=== PATIENT | female | born 1995 | race Hispanic/Latino ===

== ENCOUNTER 2017-07-31 22:52 | Inpatient (IN) | payer OTHER ==
[2017-07-31 23:19] VITALS: BMI 27.7
[2017-07-31] MEDS ORDERED: Ibuprofen 800 MG TAB PO PRN (23:28)
[2017-07-31] MEDS ORDERED: HYDROcodone/Acetaminophen 5/325 mg Tablet PO PRN ×2 (23:28)
[2017-07-31] MEDS ORDERED: Lidocaine 1% (PF) 30 ML VIAL SC PRN ×2 (23:28→23:33)
[2017-07-31] MEDS ORDERED: Promethazine HCl 25 MG/ML VIAL IM PRN (23:28)
[2017-07-31] MEDS ORDERED: Ondansetron HCl/PF 4 MG/2 ML Vial IVP PRN (23:28)
[2017-07-31] MEDS ORDERED: LR / Pitocin 40 units/1000 ml 1,000 ML IV PRN ×2 (23:28→23:33)
[2017-07-31] MEDS ORDERED: Penicillin G Potassium 5 MILL.UNITS in Sodium Chloride 0.9% 100 ML IVPB SCH (23:45)
[2017-07-31 23:51] LABS: Hematocrit 37.8 % (36.0-47.0); Mean Platelet Volume 8.6 fL (7.4-10.4); Red Blood Cell (RBC) Count 4.22 mill/uL (4.20-5.40); White Blood Cell (WBC) Count 10.4 thou/uL (4.8-10.8)
[2017-07-31] MEDS: Lactated Ringer's 1,000 ML IV SCH (23:55)
[2017-08-01] MEDS ORDERED: Bupivacaine 0.25% 10 ML VIAL ONE (00:01)
[2017-08-01] MEDS ORDERED: Fentanyl 4 mcg/Marc 0.1% Cadd 100 ML ONE (00:25)
[2017-08-01] MEDS ORDERED: diphenhydrAMINE HCl 50 MG/ML 1 ML VIAL IVP PRN (01:03)
[2017-08-01] MEDS ORDERED: Acetaminophen 325 MG TAB PO PRN (01:03)
[2017-08-01] MEDS ORDERED: Ondansetron HCl/PF 4 MG/2 ML Vial IVP PRN (01:03)
[2017-08-01] MEDS ORDERED: Promethazine HCl 25 MG/ML VIAL IM PRN (01:03)
[2017-08-01] MEDS ORDERED: Lactated Ringer's 500 ML IV PRN (01:03)
[2017-08-01] MEDS ORDERED: Naloxone HCl 0.4 mg/ml Vial IVP PRN ×2 (01:03)
[2017-08-01] MEDS ORDERED: Eucerin (Mineral Oil/Petrolatum,White) 30 gm Jar TOP PRN (01:03)
[2017-08-01] MEDS ORDERED: ePHEDrine/0.9% NaCl/PF SYRINGE 50 mg/10 ml SLOW IVP PRN (01:03)
[2017-08-01] MEDS ORDERED: Lanolin Ointment 7 GM TUBE TOP PRN (01:07)
[2017-08-01] MEDS ORDERED: Bisacodyl 10 MG SUPP PR PRN (01:07)
[2017-08-01] MEDS ORDERED: Measles/Mumps/Rubella 10 MCG/0.5 ML VIAL SC ONE (01:07)
[2017-08-01] MEDS ORDERED: Acetaminophen/Codeine 30-300mg Tablet PO PRN (01:07)
[2017-08-01] MEDS ORDERED: Benzocaine/Menthol 20-0.5% 60 ML CAN TOP PRN (01:07)
[2017-08-01] MEDS ORDERED: Adacel (T-DAP) 0.5 ML VIAL IM ONE (01:07)
[2017-08-01] MEDS ORDERED: Milk Of Magnesia 30 ML UDCUP PO PRN (01:07)
[2017-08-01] MEDS ORDERED: Varicella virus, LIVE 0.5 ML VIAL SC ONE (01:07)
[2017-08-01] MEDS ORDERED: HYDROcodone/Acetaminophen 5/325 mg Tablet PO PRN (01:07)
[2017-08-01 01:13] LABS: CO2 Tension (PaCO2) 65.6 mmHg (44.0-56.0)
[2017-08-01] MEDS ORDERED: LR / Pitocin 40 units/1000 ml 1,000 ML IV SCH (01:15)
[2017-08-01] MEDS ORDERED: Fentanyl 4mcg/Marcaine 0.1% Cassette 100 ML EPIDURAL SCH (01:15)
[2017-08-01] MEDS ORDERED: Communication Order-Pharmacy FS SCH (01:15)
[2017-08-01] MEDS: Ibuprofen 800 MG TAB PO SCH ×3 (04:04→21:03)
[2017-08-01] MEDS: Penicillin G 2.5 MILL.units 2.5 MILL.UNITS in Premix Bag 1 BAG IVPB SCH ×5 (05:24→21:09)
--- NOTE | 2017-08-01 06:23 | HP ---
LOCATION: Labor and Delivery. TIME OF EVALUATION: 2314 REASON FOR EVALUATION: Contractions at 39 weeks and 3 days. This is a patient of Dr. Oneill who is unavailable with Dr. Galindo covering. HISTORY OF PRESENT ILLNESS: In brief, this is a patient of Dr. Oneill who is a 22-year-old G3, P1 a t 39 weeks and 3 days, GBS positive, with irregular contractions. She denies trauma, vaginal bleedi ng or other complications. She denies any issues. This is a courtesy H\T\P for Dr. Mateo carr ho was covering for Dr. Oneill. PAST MEDICAL HISTORY: Otherwise, negative. PAST SURGICAL HISTORY: Significant only for Lasik surgery in 2015. OBSTETRIC HISTORY: Significant for prior vaginal deliveries. PHYSICAL EXAMINATION: VITAL SIGNS: Blood pressure is 136/73 and she is afebrile, respirations are 18-20, and they are unl abored. GENERAL: She is in no acute distress. ABDOMEN: Soft and nontender and size consistent with dates. Contractions palpate moderate. CERVICAL EXAMINATION: Reveals a cervix is 6 cm dilation, 80% effacement, -2 station. heart rate tracing for Ms. Araiza has been reviewed by me. Currently, there is some decreased variability, but monitoring has only been on for about 7 minutes or so. Contractions appear about every 2-3 minutes. ASSESSMENT: This is a patient at term at 6 cm in active labor. PLAN: 1. Admit to Labor and Delivery. 2. Notify Dr. Galindo who was covering for Dr. Harmony Oneill. 3. She is GBS positive, so we will cover with antibiotics/penicillin. 4. heart rate tracing is category 2 due to minimal to moderate variability. We will continue to follow.
--- NOTE | 2017-08-01 06:55 | DN ---
DATE OF DELIVERY: 08/01/2017 TIME OF DELIVERY: 005 PREPROCEDURE DIAGNOSIS: Multigravida at term with impending delivery. POSTPROCEDURE DIAGNOSIS: Multigravida at term with impending delivery. PROCEDURES: 1. Spontaneous vaginal delivery. 2. Spontaneous placental delivery (Gilmore mechanism). DELIVERY PHYSICIAN: Dr. Mcgraw. ANESTHESIA: None. COMPLICATIONS: None. COUNTS: Correct. LABORATORY SPECIMENS: Sent included an umbilical arterial gas for precipitous delivery. FINDINGS: 1. A vigorous female with Apgars 9 and 9. 2. No nuchal cord. 3. No perineal lacerations. 4. Counts are correct. 5. Vigorous . DISPOSITION: To recovery in good and stable condition. TECHNIQUE: In brief, I was called for a stat delivery in LDR1. This was a patient of Dr. Harmony causey with Dr. Galindo covering; however, due to the eminent nature of delivery, I was called in as a naif dby. I arrived to find the child and the baby's head delivered immediately upon my arrival . Shoulders then followed with a head to body delivery interval of less than 10 seconds. The baby was vigorous at delivery. The patient's nurse was in attendance and also assisted with delivery. T he cord was clamped, transected, and the baby was given to the mother for [id number]. Baby was a vigorous female. Placenta delivered within approximately 1 minute of baby delivery and it was intac t. EBL was less than or equal to 300 mL. Once again, due to the eminent nature of the delivery, Dr Shikha Galindo was not available to assist. This is a spontaneous vaginal delivery at term without complica tions. She will be transported to recovery for routine care and then to the [facility] for routine management. No acute issues or concerns at this time.
[2017-08-01] MEDS: Lactated Ringer's 1,000 ML IV SCH ×2 (07:49→16:08)
[2017-08-01] MEDS: Ferrous Sulfate 325 MG TAB PO SCH ×2 (08:20→16:08)
[2017-08-01] MEDS ORDERED: Prenatal Vitamin 1 TAB PO SCH (09:00)
[2017-08-01] MEDS: Docusate (Surfak) 240 MG CAP PO SCH ×2 (09:41→21:03)
[2017-08-02] MEDS: Penicillin G 2.5 MILL.units 2.5 MILL.UNITS in Premix Bag 1 BAG IVPB SCH ×3 (02:25→09:35)
[2017-08-02] MEDS: Lactated Ringer's 1,000 ML IV SCH ×2 (02:25→09:35)
[2017-08-02] MEDS: Ibuprofen 800 MG TAB PO SCH (05:40)
[2017-08-02 09:15] VITALS: BP 104/64; TEMP 98.6
[2017-08-02] MEDS: Docusate (Surfak) 240 MG CAP PO SCH (09:32)
[2017-08-02] MEDS: Ferrous Sulfate 325 MG TAB PO SCH (09:35)
== END 2017-08-02 15:10 | disposition home or self-care (01) | DRG 775 ==
LOC: L&D/OP 22:52 → L&D 08-01 01:44 → 3SW 08-01 03:32
PROVIDERS: ADMIT Family Medicine; ATTEND Family Medicine
PROC: 10E0XZZ Delivery of Products of Conception, External Approach (ICD-10-PCS; principal; 2017-08-01)
DX: O62.3 Precipitate labor (principal); O99.824 Streptococcus B carrier state complicating childbirth; Z3A.39 39 weeks gestation of pregnancy; Z37.0 Single live birth; Z23 Encounter for immunization
CPT/HCPCS: 82805; 85027; 86780; 87340; 87389; 90707; J2540; J7050; S0020